=== PATIENT | female | born 1975 | race Hispanic/Latino ===

== ENCOUNTER 2019-12-05 14:08 | Emergency (ER) | payer BC | END 2019-12-05 15:00 | disposition home or self-care (01) | LOC: NAV ERS 14:08 | DX: H61.22 Impacted cerumen, left ear (principal); Z87.891 Personal history of nicotine dependence | CPT/HCPCS: 99281 ==

== ENCOUNTER → 2020-04-28 | Emergency (ER) | payer BC, OTHER ==
[2020-04-29 18:03] LABS: SARS-CoV-2 MS2 Positive; SARS-CoV-2 N Gene Positive; SARS-CoV-2 S Gene Positive; SARS-CoV-2 orf1ab Positive
== END ==
LOC: NAV ERS 17:14
DX: U07.1 COVID-19 (principal); Z87.891 Personal history of nicotine dependence
CPT/HCPCS: 87635; 99283; U0003

== ENCOUNTER 2020-05-18 11:10 | Emergency (ER) | payer BC, OTHER ==
[2020-05-19 15:02] LABS: SARS-CoV-2 MS2 Positive; SARS-CoV-2 N Gene Positive; SARS-CoV-2 S Gene Positive; SARS-CoV-2 orf1ab Positive
== END 2020-05-18 11:55 | disposition home or self-care (01) ==
LOC: NAV ERS 11:10
DX: U07.1 COVID-19 (principal); Z87.891 Personal history of nicotine dependence
CPT/HCPCS: 87635; 99283; U0003

== ENCOUNTER 2020-05-29 16:21 | Emergency (ER) | payer BC, OTHER ==
[2020-06-01 12:40] LABS: SARS-CoV-2 MS2 Positive; SARS-CoV-2 N Gene Positive; SARS-CoV-2 S Gene Negative; SARS-CoV-2 orf1ab Positive
== END 2020-05-29 16:56 | disposition home or self-care (01) ==
LOC: NAV ERS 16:21
DX: U07.1 COVID-19 (principal); Z87.891 Personal history of nicotine dependence
CPT/HCPCS: 87635; 99283; U0003

== ENCOUNTER 2020-06-09 11:30 | Emergency (ER) | payer BC, OTHER ==
[2020-06-10 13:04] LABS: SARS-CoV-2 MS2 Positive; SARS-CoV-2 N Gene Positive; SARS-CoV-2 S Gene Positive; SARS-CoV-2 by NAA DETECTED (NotDetected); SARS-CoV-2 orf1ab Positive
== END 2020-06-09 12:26 | disposition home or self-care (01) ==
LOC: NAV ERS 11:30
DX: U07.1 COVID-19 (principal); Z87.891 Personal history of nicotine dependence
CPT/HCPCS: 87635; 99283; U0003

== ENCOUNTER 2020-06-16 16:49 | Emergency (ER) | payer BC, OTHER ==
[2020-06-17 11:48] LABS: SARS-CoV-2 MS2 Positive; SARS-CoV-2 N Gene Positive; SARS-CoV-2 S Gene Positive; SARS-CoV-2 by NAA DETECTED (NotDetected); SARS-CoV-2 orf1ab Positive
== END 2020-06-16 17:45 | disposition home or self-care (01) ==
LOC: NAV ERS 16:49
DX: U07.1 COVID-19 (principal); H65.92 Unspecified nonsuppurative otitis media, left ear
CPT/HCPCS: 87635; 99283; U0003

== ENCOUNTER 2020-06-17 02:38 | Emergency (ER) | payer BC, OTHER ==
[2020-06-17] MEDS ORDERED: Ondansetron PF 4 MG/2 ML Vial ONE (03:09)
[2020-06-17] MEDS ORDERED: Mag-Al Plus 1200 MG/1200 MG/120 MG/30 ML UDCUP ONE (03:13)
[2020-06-17] MEDS ORDERED: Lidocaine Viscous Sol 2% 15 ml UD Cup ONE (03:14)
[2020-06-17 03:26] LABS: #Basophils 0.1 thou/uL (0.0-0.2); #Eosinphils 0.1 thou/uL (0.0-0.7); #Monocytes 0.5 thou/uL (0.11-0.59); #Neutrophils 10.1 thou/uL (1.40-6.50); %Basophils 0.9 % (0.0-1.0); %Eosinophils 0.8 % (0.0-10.0); %Lymphocytes 27.2 % (21.0-51.0); %Neutrophils 68.1 % (42.0-75.0); Hemoglobin 12.8 g/dL (12.0-16.0); Mean Corpuscular HGB CONC 31.4 g/dL (32.0-36.0); Mean Corpuscular Hemoglobin 27.6 pg (27.0-31.0); Mean Platelet Volume 9.6 fL (7.4-10.4); Platelet Count 342 thou/uL (130-400); RBC Distribution Width 13.2 % (11.5-14.5); Red Blood Cell (RBC) Count 4.64 mill/uL (4.20-5.40); White Blood Cell (WBC) Count 14.8 thou/uL (4.8-10.8)
[2020-06-17 03:37] LABS: ALT (SGPT) 30 U/L (8-55); AST (SGOT) 32 U/L (5-34); Albumin 4.4 g/dL (3.5-5.0); Alkaline Phosphatase 76 U/L (40-110); Anion Gap 24 mmol/L (10-20); BUN (Urea Nitrogen) 12 mg/dL (7.0-18.7); Bilirubin, Total 0.3 mg/dL (0.2-1.2); Calc. Creatinine Clearance 0 mL/min (70-130); Calcium 9.8 mg/dL (7.8-10.44); Carbon Dioxide 15 mmol/L (22-29); Chloride 106 mmol/L (98-107); Estimated GFR-MDRD 72; Globulin 3.1 g/dL (2.4-3.5); Glucose 145 mg/dL (70-105); Lipase 33 U/L (8-78); Potassium 3.9 mmol/L (3.5-5.1); Protein, Total 7.5 g/dL (6.0-8.3); Sodium 141 mmol/L (136-145)
[2020-06-17] MEDS ORDERED: Famotidine/PF 20 mg/2ml Vial ONE (03:42)
[2020-06-17 06:34] LABS: Troponin I 0.011 ng/mL (< 0.028)
[2020-06-17] MEDS ORDERED: Sodium Chloride 0.9% 1,000 ML ONE ×2 (07:22)
--- NOTE | 2020-06-17 07:23 | RAD ---
RADIOGRAPH CHEST 1 VIEW: DATE: 06/17/2020 HISTORY: 44-year-old female with dyspnea FINDINGS: There is no airspace density, pulmonary edema, or pneumothorax. The lateral costophrenic angles are n ot effaced. IMPRESSION: No acute pulmonary findings.
[2020-06-17 07:42] LABS: Anion Gap 14 mmol/L (10-20); BUN (Urea Nitrogen) 10 mg/dL (7.0-18.7); Calc. Creatinine Clearance 0 mL/min (70-130); Calcium 9.4 mg/dL (7.8-10.44); Carbon Dioxide 22 mmol/L (22-29); Chloride 109 mmol/L (98-107); Estimated GFR-MDRD 90; Glucose 105 mg/dL (70-105); Potassium 4.4 mmol/L (3.5-5.1); Sodium 141 mmol/L (136-145)
--- NOTE | 2020-06-17 07:47 | CT ---
CT ABDOMEN WITH CONTRAST CT PELVIS WITH CONTRAST: DATE: 06/17/2020 HISTORY: 44-year-old female with upper abdominal pain TECHNIQUE: IV injection of iodinated contrast media: Administered Oral contrast media:Not administered FINDINGS: Liver: No focal solid mass. Spleen: No splenomegaly Gallbladder: Not excessively distended. Slight mural enhancement.. Mild pericholecystic edema/fluid. Noncalcified tiny gallstones at junction between the body and neck. Tiny gallstone at fundus. Pancreas: No mass or surrounding fat stranding.. Adrenals: No mass.. Kidneys: No hydronephrosis or enhancement abnormalities.. Ureters: No dilation. Bladder: No pathology identified. Abdominal aorta: No aneurysm. Small bowel: No dilation. Colon: No adjacent fat stranding. Appendix: No dilation or adjacent fat stranding.. Free air: None. Free fluid: None. Bilateral adnexal cysts. Largest is 2.2 x 1.9 cm on right. Essure devices bilaterally at uterine fundus traversing myometrium, with proximal portions within flu id-filled endometrial cavity. IMPRESSION: 1. Suspicious for acute cholecystitis. Cholelithiasis. Recommend further evaluation with right upper quadrant abdominal ultrasound. 2. Status post bilateral fallopian tube closure procedure with Essure devices locations described abo ve.
--- NOTE | 2020-06-17 07:51 | CT ---
CT THORAX WITH CONTRAST: DATE: 06/17/2020 HISTORY: 44-year-old female COVID-19 positive with dyspnea FINDINGS: Lungs: Clear. Pneumothorax: None. Pleural effusion: None. Thoracic aorta: No aneurysm or dissection. Mediastinum: No lymphadenopathy or other mass. Rachell: No lymphadenopathy or other mass. Heart: No cardiomegaly or pericardial effusion. Trachea and major bronchi: Patent and clear. IMPRESSION: Normal.
[2020-06-17] MEDS ORDERED: Sodium Chloride 0.9% 100 ML ONE (08:12)
[2020-06-17] MEDS ORDERED: Piperacillin/Tazobactam 4.5 GM VIAL ONE (08:12)
[2020-06-17] MEDS ORDERED: Iopamidol 370 76% 100 ML VIAL ONE (09:00)
--- NOTE | 2020-06-17 13:23 | PDOC.CONS ---
- Consultation CHIEF COMPLAINT: Abdominal pain HISTORY OF PRESENT ILLNESS: 44-year-old female with 1 day history of abdominal pain. The pain is located in the mid abdomen in the right upper quadrant. Is described as "sharp and stabbing". It radiates towards the back. It is associated with nausea and emesis. She presented to the emergency department as a transfer from [facility] with CT evidence concerning for acute cholecystitis. On arrival, ultrasound of the abdomen was obtained which demonstrated pericholecystic fluid , a thickened gallbladder wall, and cholelithiasis. On interview, she is experiencing less pain after receiving narcotic analgesia. REVIEW OF SYSTEMS: General: Denies recent weight changes, fever, or chills. Eyes: Denies visual changes, pain, or irritation ENT: Denies changes in hearing, nasal discharge, or sore throat Cardiovascular: Denies chest pain, palpitations, shortness of breath, or edema. Respiratory: Denies cough, shortness of breath, or wheezing Gastrointestinal: Positive per HPI Genitourinary: Denies frequent urination or dysuria Musculoskeletal: Denies pain or restricted motion Integumentary: Denies abnormal rashes, sores, or skin lesions Neurological: Denies numbness, tingling, or weakness. Psychiatric: Denies new onset anxiety or depression Endocrine: Denies temperature intolerances, polyuria, or excessive thirst Hematologic: Denies abnormal bruising or bleeding PAST MEDICAL HISTORY: Denies PAST SURGICAL HISTORY: Denies FAMILY HISTORY: Noncontributory SOCIAL HISTORY Never smoker, denies illicit drug use, endorses occasional alcohol consumption. PHYSICAL EXAM: Signs within normal limits, afebrile General: Alert and oriented, no acute distress ENT: Sclera anicteric, pupils equal and reactive, mucous membranes moist Neck: No jugular venous distention, trachea midline Cardiovascular: Regular rate and rhythm Pulmonary: Clear to auscultation Abdominal: Soft, nondistended, mild TTP RUQ Genitourinary: Normal anatomy Rectal: Deferred Integument: No abnormal rashes or lesions Musculoskeletal: No gross deformities or edema, normal range of motion RESULTS: Laboratory analysis reviewed and is notable for mild leukocytosis of 14.8 without significant left shift or bandemia. Also demonstrates a lactic acid of 2.2. CT of the abdomen and pelvis reviewed as well as the ultrasound of the abdomen. Both show thickened gallbladder wall with cholelithiasis and pericholecystic fluid associated with gallbladder wall thickening. ASSESSMENT: 44-year-old female with acute cholecystitis. The natural history of acute cholecystitis as well as her management options were discussed. The patient has elected to proceed with laparoscopic cholecystectomy. PLAN: Plan for laparoscopic cholecystectomy later today. The relative risks and benefits of this procedure were discussed in detail with the patient, specifically addressing the risk of bile leak and common bile duct injury. Informed consent was obtained. Anticipate discharge from postoperative recovery unit.
== END 2020-06-17 09:20 | disposition short-term general hospital (02) ==
LOC: NAV ERS 02:38
DX: U07.1 COVID-19 (principal); K81.9 Cholecystitis, unspecified
CPT/HCPCS: 71045; 71260; 74177; 80053; 83605; 83690; 84484; 85025; 87040; 93005; 96361; 96365; 96375; J2405; J2543; J3490; J7050; Q9967; S0028

== ENCOUNTER 2020-06-27 13:17 | Emergency (ER) | payer BC | END 2020-06-27 14:10 | disposition home or self-care (01) | LOC: NAV ERS 13:17 | DX: J00 Acute nasopharyngitis [common cold] (principal); Z20.828 Contact with and (suspected) exposure to other viral communicable diseases | CPT/HCPCS: 99281 ==

== ENCOUNTER 2020-07-04 03:52 | Emergency (ER) | payer BC ==
[2020-07-04] MEDS ORDERED: Ondansetron PF 4 MG/2 ML Vial ONE (04:24)
[2020-07-04] MEDS ORDERED: Morphine 2 MG/ML SYRINGE ONE (04:24)
[2020-07-04 04:36] LABS: #Eosinphils 0.1 thou/uL (0.0-0.7); #Lymphocytes 2.3 thou/uL (1.20-3.40); #Monocytes 0.2 thou/uL (0.11-0.59); #Neutrophils 9.4 thou/uL (1.40-6.50); %Basophils 0.3 % (0.0-1.0); %Eosinophils 0.9 % (0.0-10.0); %Lymphocytes 18.9 % (21.0-51.0); %Monocytes 1.9 % (0.0-10.0); Hemoglobin 12.7 g/dL (12.0-16.0); Mean Corpuscular HGB CONC 30.9 g/dL (32.0-36.0); Mean Corpuscular Hemoglobin 27.1 pg (27.0-31.0); Mean Corpuscular Volume 87.8 fL (78.0-98.0); Mean Platelet Volume 9.7 fL (7.4-10.4); Platelet Count 285 thou/uL (130-400); RBC Distribution Width 13.1 % (11.5-14.5); Red Blood Cell (RBC) Count 4.67 mill/uL (4.20-5.40); White Blood Cell (WBC) Count 12.1 thou/uL (4.8-10.8)
[2020-07-04 04:51] LABS: ALT (SGPT) 68 U/L (8-55); AST (SGOT) 178 U/L (5-34); Albumin 4.3 g/dL (3.5-5.0); Alkaline Phosphatase 88 U/L (40-110); Anion Gap 19 mmol/L (10-20); BUN (Urea Nitrogen) 8 mg/dL (7.0-18.7); Bilirubin, Total 0.9 mg/dL (0.2-1.2); Calc. Creatinine Clearance 0 mL/min (70-130); Calcium 8.8 mg/dL (7.8-10.44); Carbon Dioxide 16 mmol/L (22-29); Chloride 106 mmol/L (98-107); Estimated GFR-MDRD 80; Globulin 2.9 g/dL (2.4-3.5); Glucose 123 mg/dL (70-105); Lipase 14 U/L (8-78); Potassium 3.8 mmol/L (3.5-5.1); Protein, Total 7.2 g/dL (6.0-8.3); Sodium 137 mmol/L (136-145)
[2020-07-04] MEDS ORDERED: Mag-Al Plus 1200 MG/1200 MG/120 MG/30 ML UDCUP ONE (05:16)
[2020-07-04] MEDS ORDERED: Lidocaine Viscous Sol 2% 15 ml UD Cup ONE (05:16)
== END 2020-07-04 05:45 | disposition home or self-care (01) ==
LOC: NAV ERS 03:52
DX: R10.13 Epigastric pain (principal)
CPT/HCPCS: 80053; 83690; 85025; 93005; 96374; 96375; J2270; J2405

== ENCOUNTER 2021-03-31 17:16 | Emergency (ER) | payer BC, OTHER | END 2021-03-31 17:52 | disposition home or self-care (01) | LOC: NAV ERS 17:16 | DX: K04.7 Periapical abscess without sinus (principal) | CPT/HCPCS: 99283 ==

== ENCOUNTER 2025-11-01 16:17 | Emergency (ER) | payer BC, OTHER, SELFPAY ==
[2025-11-01] MEDS ORDERED: Ondansetron PF 4 MG/2 ML Vial ONE (17:30)
[2025-11-01 17:54] LABS: ALT (SGPT) 19 U/L (Less than 34); AST (SGOT) 24 U/L (11-34); Albumin 4.0 g/dL (3.1-4.5); Alkaline Phosphatase 70 U/L (40-110); Anion Gap 15 mmol/L (10-20); BUN (Urea Nitrogen) 10 mg/dL (7.0-18.7); Bilirubin, Total 0.2 mg/dL (0.3-1.2); Calc. Creatinine Clearance 0 mL/min (70-130); Calcium 9.1 mg/dL (7.8-10.44); Carbon Dioxide 20 mmol/L (22-29); Chloride 107 mmol/L (98-107); Globulin 3.2 g/dL (2.4-3.5); Glucose 95 mg/dL (70-105); Potassium 3.5 mmol/L (3.5-5.1); Sodium 138 mmol/L (136-145)
[2025-11-01 17:56] LABS: Troponin I Less than 0.010 ng/mL (< 0.028)
[2025-11-01 18:11] LABS: Hematocrit 35.1 % (36.0-47.0); Hemoglobin 11.1 g/dL (12.0-16.0); Mean Corpuscular Hemoglobin 23.6 pg (27.0-31.0); Mean Corpuscular Volume 74.6 fl (78.0-98.0); Platelet Count 260 10x3/uL (130-400); Red Blood Cell (RBC) Count 4.70 mill/uL (4.20-5.40); White Blood Cell (WBC) Count 8.0 10x3/uL (4.8-10.8)
[2025-11-01 19:03] LABS: MDiff Complete? YES
[2025-11-02 11:45] LABS: Iron 27 ug/dL (50-170); Iron Binding Capacity, Total 483 mcg/dL (265-497); Transferrin, Serum 386 mg/dL (180-382)
[2025-11-02 12:10] LABS: Ferritin 5.47 ng/mL (10-291); Vitamin B12 210.0 pg/mL (211-911)
== END 2025-11-01 19:25 | disposition home or self-care (01) ==
LOC: NAV ERS 16:17
DX: D50.9 Iron deficiency anemia, unspecified (principal); I10 Essential (primary) hypertension; R20.2 Paresthesia of skin
CPT/HCPCS: 80053; 82607; 82728; 83540; 83550; 84443; 84466; 84484; 85025; 85046; 85379; 93005; 96374; J2405; J7030